=== PATIENT | male | born 1965 | race Caucasian/White ===

== ENCOUNTER 2019-02-28 07:51 | Outpatient (CLI) | payer BC, SELFPAY ==
[2019-02-28 08:50] LABS: Hemoglobin A1C 5.6 % (4.5-6.2)
[2019-02-28 08:58] LABS: Anion Gap 7.6 mmol/L (3-11); BUN 17 mg/dL (7-18); CO2 29.4 mmol/L (21.0-32.0); CREATININE 0.99 mg/dL (0.70-1.30); Calcium 8.9 mg/dL (8.5-10.1); Calculated LDL 115; Chloride 103 mmol/L (98-107); Cholesterol 212 mg/dL (50-200); Glucose 99 mg/dL (70-100); HDL Cholesterol 90 mg/dL (40-60); Potassium 4.5 mmol/L (3.5-5.1); Sodium 140 mmol/L (136-145); Triglyceride 36 mg/dL (30-150)
[2019-03-01 10:33] LABS: HIV-1/2 Ag & Ab Screen Negative (NEGAT)
== END 2019-02-28 08:11 ==
PROVIDERS: PCP Nurse Practitioner Family; Visit Provider Nurse Practitioner Family
DX: E66.01 Morbid (severe) obesity due to excess calories (principal); Z13.1 Encounter for screening for diabetes mellitus; Z13.220 Encounter for screening for lipoid disorders; Z11.4 Encounter for screening for human immunodeficiency virus [HIV]
CPT/HCPCS: 36415; 80048; 80061; 83721; 87389; 83036

== ENCOUNTER 2020-06-25 10:53 | Outpatient (CLI) | payer SELFPAY ==
[2020-06-27 19:31] LABS: Patient Race White; SARS-CoV-2 RNA Undetected (Undetected); SARS-CoV-2 Specimen Source Nasopharynx
== END 2020-06-25 11:13 ==
PROVIDERS: PCP Nurse Practitioner Family; Visit Provider Family Medicine
DX: R05 Cough (principal); Z11.59 Encounter for screening for other viral diseases
CPT/HCPCS: U0003

== ENCOUNTER 2023-12-02 03:31 | Outpatient (CLI) | payer MEDICAID, SELFPAY ==
[2023-12-02 08:07] LABS: Abs Immature Grans 0.12 10^3/uL (0.0-0.06); Absolute Eosinophil Count 0.26 10^3/uL (0.0-0.7); Absolute Lymphocyte Count 3.16 10^3/uL (1.2-3.4); Absolute Monocyte Count 1.02 10^3/uL (0.1-0.8); Basophils % 0.8; Eosinophils % 1.2; HCT 50.3 % (40.0-50.0); HGB 17.1 g/dL (13.5-17.5); Immature Grans % 0.6; Lymphocytes % 14.8; MCH 29.8 pg (27.0-33.0); MCV 88 fL (80-95); MPV 8.3 fL (8.0-11.0); Monocytes % 4.8; Neutrophils % 77.8; Platelet Count 293 10^3/uL (130-400); RBC 5.74 10^6/uL (4.36-5.78); RDW 13.6 % (11.8-14.1); RDW-SD 43.5 fL; WBC 21.33 10^3/uL (4.4-10.8)
[2023-12-02 08:10] LABS: Absolute Basophil Count 0.17 10^3/uL (0.0-0.2); Absolute Neutrophil Count 16.59 10^3/uL (1.2-6.7)
[2023-12-02 08:24] LABS: ALT 32 U/L (16-63); AST 12 U/L (15-37); Albumin 3.8 g/dL (3.4-5.0); Alkaline Phosphatase 97 U/L (46-116); Anion Gap 7.6 mmol/L (3-11); BUN 12 mg/dL (7-18); Bilirubin, Total 1.3 mg/dL (0.2-1.0); CO2 31.4 mmol/L (21.0-32.0); CREATININE 1.1 mg/dL (0.70-1.30); Calcium 9.8 mg/dL (8.5-10.1); Calculated LDL 87 mg/dL (<100); Chloride 101 mmol/L (98-107); Cholesterol 177 mg/dL (<200); Estimated GFR 77.81 (mL/min/1.73m2); Glucose 104 mg/dL (74-106); HDL Cholesterol 84 mg/dL (40-60); Potassium 4.2 mmol/L (3.5-5.1); Sodium 140 mmol/L (136-145); Total Protein 8.3 g/dL (6.4-8.2); Triglyceride 34 mg/dL (<150)
[2023-12-02 08:41] LABS: Hemoglobin A1C 5.8 % (<5.7)
== END 2023-12-02 03:32 | disposition home or self-care (01) ==
LOC: LBO 03:31
PROVIDERS: PCP Nurse Practitioner Family; Referring Provider Nurse Practitioner; Visit Provider Nurse Practitioner
DX: E66.9 Obesity, unspecified (principal); Z13.220 Encounter for screening for lipoid disorders; I10 Essential (primary) hypertension
CPT/HCPCS: 36415; 80053; 80061; 83036; 85025

== ENCOUNTER 2024-03-09 01:04 | Outpatient (CLI) | payer MEDICAID, SELFPAY ==
[2024-03-09 16:19] LABS: Abs Immature Grans 0.04 10^3/uL (0.0-0.06); Absolute Basophil Count 0.12 10^3/uL (0.0-0.2); Absolute Eosinophil Count 0.25 10^3/uL (0.0-0.7); Absolute Monocyte Count 0.74 10^3/uL (0.1-0.8); Absolute Neutrophil Count 6.34 10^3/uL (1.2-6.7); Basophils % 1.1 %; Eosinophils % 2.3 %; HCT 51.5 % (40.0-50.0); HGB 16.6 g/dL (13.5-17.5); Immature Grans % 0.4 %; Lymphocytes % 30.6 %; MCH 29.6 pg (27.0-33.0); MCHC 32.2 % (32.0-36.0); MCV 92 fL (80-95); MPV 8.9 fL (8.0-11.0); Monocytes % 6.9 %; Neutrophils % 58.7 %; Platelet Count 281 10^3/uL (130-400); RDW 13.7 % (11.8-14.1); RDW-SD 46.5 fL; WBC 10.79 10^3/uL (4.4-10.8)
[2024-03-09 22:51] LABS: PSA, Screening 2.8 ng/mL (<=3.5)
[2024-03-10 09:43] LABS: Hepatitis C Ab w Rflx HCV PCR Negative (Negative)
== END 2024-03-09 01:05 | disposition home or self-care (01) ==
LOC: LBO 01:04
PROVIDERS: PCP Nurse Practitioner Family; Referring Provider Nurse Practitioner; Visit Provider Nurse Practitioner
DX: D72.829 Elevated white blood cell count, unspecified (principal); Z11.59 Encounter for screening for other viral diseases; R35.1 Nocturia
CPT/HCPCS: 36415; 84153; 86803; 85025

== ENCOUNTER 2024-05-19 00:45 | Outpatient (CLI) | payer MEDICAID, SELFPAY ==
[2024-05-19 09:08] LABS: Anion Gap 6.6 mmol/L (3-11); BUN 13 mg/dL (7-18); CO2 30.4 mmol/L (21.0-32.0); CREATININE 1.1 mg/dL (0.70-1.30); Calcium 9.5 mg/dL (8.5-10.1); Chloride 103 mmol/L (98-107); Estimated GFR 77.81 (mL/min/1.73m2); Glucose 104 mg/dL (74-106); Potassium 4.2 mmol/L (3.5-5.1); Sodium 140 mmol/L (136-145)
== END 2024-05-19 00:46 | disposition home or self-care (01) ==
LOC: LBO 00:45
PROVIDERS: PCP Nurse Practitioner Family; Visit Provider Nurse Practitioner Family
DX: I10 Essential (primary) hypertension (principal)
CPT/HCPCS: 36415; 80048

== ENCOUNTER 2024-12-12 11:47 | Emergency (ER) | payer OTHER, SELFPAY ==
[2024-12-12 11:57] VITALS: BP 154/97; PULSE 71; RESP 14; TEMP 36.4; O2SAT 96
[2024-12-12 12:33] VITALS: BP 154/74; PULSE 71; RESP 14; TEMP 36.4; O2SAT 99
--- NOTE | 2024-12-12 12:33 | W.ED.GENAD ---
Discharge Plan Disposition Patient Disposition: Eloped Condition: Stable Discharge Details Chief Complaint: EyeProblem Clinical Impression: Visual disturbance, Papilledema Primary Care Provider: Verna Canrey ED Provider: Gisele Mittal Home Meds and New Rx's Prescriptions: No Action One-A-Day Men's Multivitamin 400-20-300 mcg tablet 1 tab PO DAILY ibuprofen 200 mg capsule 200 mg PO QID PRN lisinopril 10 mg tablet 10 mg PO DAILY Qty: 90 3RF fluticasone propionate 50 mcg/actuation spray,suspension 1 spray intranasal BID Qty: 16 1RF Rx Instructions: administer into each nostril HPI General Mode of arrival: ambulatory. Date/Time Provider Initiated Documentation: 12/12/24 12:05. Limitations to Documentation: no limitations. Information obtained by: patient, RN notes reviewed and old records reviewed. HPI Narrative: 59-year-old male presents to the ER with a chief complaint of right blurry vision for approximately 1 week. He denies any headache. He reports that it is slowly getting worse. [facility] He presents with an order for an MRI of brain and orbits with and without and lab work requisition. He does have a history of hypertension high cholesterol, he is a non-smoker does endorse occasional alcohol. ANO x 4. No focal neurodeficits noted. Related Data Home Medications ?Medication ?Instructions ?Recorded ?Confirmed ibuprofen 200 mg capsule 200 mg PO QID PRN 02/23/19 12/12/24 fluticasone propionate 50 1 spray intranasal BID #16 grams 05/05/24 12/12/24 mcg/actuation nasal spray,suspension vpwgfsde-mvxamtgd-oaxqj acid 400 1 tab PO DAILY 06/09/24 12/12/24 mcg-vit K 20 mcg-lycop 300 mcg tablet (One-A-Day Men's Multivitamin) lisinopril 10 mg tablet 10 mg PO DAILY #90 tabs 09/12/24 12/12/24 Previous Rx's ?Medication ?Instructions ?Recorded fluticasone propionate 50 1 spray intranasal BID #16 grams 05/05/24 mcg/actuation nasal spray,suspension lisinopril 10 mg tablet 10 mg PO DAILY #90 tabs 09/12/24 Allergies Allergy/AdvReac Type Severity Reaction Status Date / Time No Known Allergies Allergy Verified 12/12/24 12:01 General Stated Complaint: EyeProblem JOE: 3 Review of Systems All systems reviewed & are unremarkable except as noted in HPI and below Eyes Eyes: Reports blurry vision and Reports other visual disturbances Cardiovascular Cardiovascular: Denies chest pain and Denies dyspnea Respiratory Respiratory: Denies dyspnea Gastrointestinal Gastrointestinal: Denies diarrhea, Denies nausea and Denies vomiting Neurologic Neurologic: Reports as per HPI and Reports other visual disturbances Exam Narrative Exam Narrative: Constitutional: Alert and oriented x3. Appears stated age. Normal body habitus. Head: Normocephalic, no trauma. Eyes: Pupils PERRL, Red reflex noted, EOM's intact. Eyelids symmetrical without lesions, discharge, or swelling. ENT: Bilateral TM's WNL, External ear normal to inspection, no mastoid TTP, swelling, or erythema, Nasal turbinates WNL, no nasal discharge. Normal dentition, Posterior pharynx WNL, no exudate. Chest: RRR, Normal S1, S2, distal pulses intact. Resp: Lungs clear to auscultation bilaterally, no wheezes, rales, or rhonchi. Abdomen: Soft, non-distended, Normoactive bowel sounds all 4 quads. Musculoskeletal: Normal gait, Moves all 4 extremities without difficulty. Skin: No suspicious rashes or lesions. Capillary refill less than 2 sec. Neurologic: Cranial nerves II-XII intact. Alert and oriented x 3. Motor: No deficits noted. Sensory: Intact bilaterally all 4 extremities. Hematologic/Lymphatic: No ecchymosis, no lymphadenopathy. Course Vital Signs Vital signs: Vital Signs Temperature 36.4 C 12/12/24 11:57 Pulse 71 12/12/24 11:57 Respiratory Rate 14 12/12/24 11:57 Blood Pressure 154/97 H 12/12/24 11:57 Pulse Oximetry 96 12/12/24 11:57 Temperature 36.4 C 12/12/24 11:57 Temperature Source Oral 12/12/24 11:57 Pulse 71 12/12/24 11:57 Respiratory Rate 14 12/12/24 11:57 Blood Pressure 154/97 H 12/12/24 11:57 Blood Pressure Position Sitting 12/12/24 11:57 Pulse Oximetry 96 12/12/24 11:57 Oxygen Delivery Method Room Air 12/12/24 11:57 Oxygen Flow Rate 0 12/12/24 11:57 Pain Level 0 12/12/24 11:57 Medical Decision Making 59-year-old male presents to the ER with a chief complaint of right blurry vision for approximately 1 week. He denies any headache. He reports that it is slowly getting worse. He was sent here by [facility]. He presents with an order for an MRI of brain and orbits with and without and lab work requisition. He does have a history of hypertension high cholesterol, he is a non-smoker does endorse occasional alcohol. ANO x 4. No focal neurodeficits noted. Patient reports with an MRI brain with and without and orbits paper order, lab orders and a screening form filled out. The orders were also faxed to the radiology department and lab, [facility] called, spoke with Dr. Pj Barba who is requesting MRI of possible and labs. He reports papilledema and bilateral eyes. Labs ordered, MRI ordered. Patient is asking how long this is going to take. I did discuss with him plan of care and alternative such as a CTA with contrast. Patient has no focal neurodeficits as noted before no signs of CVA. Due to capacity at this time for MRI after weighing the risks and benefits CTA with contrast brain and neck ordered and patient can schedule the MRI as an outpatient. Patient has no focal neurodeficits no sign of CVA or TIA. I did also offer admission for MRI tomorrow which patient declined. MRI canceled and CTA ordered. 1415: Informed by ED staff that patient is not in his room, they are unable to locate him. Presumed elopement. Patient left the department without telling anybody. He did not have any workup completed prior to leaving the department. ED staff attempted to call patient on cell phone no answer. This text was generated using [employer] system, please disregard any oddities of phrase or misspellings. Quality:SDOH Health Related Social Needs: No Data to Display PFSH All Active Problems (Updated 12/12/24 @ 14:26 by Gisele Mittal NP) Papilledema (Acute) Visual disturbance (Acute) Severe sleep apnea (Acute ~05/2024) 06/18/24 Dr Dewey, polysomnogram done 11/09/24 F[facility]u w [facility] Prediabetes (Acute) Post-nasal drip (Acute) Witnessed apneic spells (Acute) Hypertension (Chronic) Bilateral primary osteoarthritis of knee (Acute) Cortisone injection [facility] Diverticulosis (Acute) 04/04/19 colonoscopy [facility] [place] - next due in 10 years BMI 40.0-44.9, adult (Chronic) Medical History (Updated 12/12/24 @ 14:26 by Gisele Mittal NP) Apneic spell witnessed. 04/26/24 saw Amarilys Courtney NP at [facility] Sebaceous hyperplasia Seborrheic keratoses Actinic keratoses Surgical History History of right knee surgery (~2017) Dr. Castaneda; meniscal repair and arthroscopy hand surgery -repair of R hand-LH Family History Mother Arthritis Father , accident at age 77. Heart disease Colon cancer ?pt not sure if colon or not (dx'ed 60s) Brother Diabetes Asthma Brother Diabetes Social History (Updated 01/10/24 @ 16:40 by Iliana King LPN) Smoking/Tobacco Use Status: Never Smoking risk assessment performed?: Yes Alcohol Intake: current Alcohol Intake frequency: holidays/special occasions only Drug use: Never Substance use type: does not use Counseling given: No Caregiver/Support person: No Household members: spouse Housing: house Number of Children: 2 number of grandchildren: 1 Communication Needs: None Education Level: middle school Do you need help understanding health information?: Often current occupation: [employer] Pets and animals: No Do you think of yourself as: straight/heterosexual Current gender identity: male What is your relationship status?: How often do you talk on the phone with friends or family?: three or more times per week How often do you get together with friends or relatives?: three or more times per week Panel score (0-1 are the most socially isolated patients): 2 What type of physical activity do you participate in: none Jill/Scientology: [employer] Special jill needs: No Seatbelt use: sometimes Helmet use: Yes (sometimes) Drive intox or ride w/intox team driver: No Water heater temp set <120 deg: Yes Working smoke detector in home: Yes Fire extinguisher in home: Yes Carbon monox detector in home: Yes Firearms in home: Yes Firearms unloaded and locked: Yes Do you feel safe at home: Yes Do you feel safe in your relationship?: Yes
--- NOTE | 2024-12-12 14:13 | NUR.NOTE ---
This nursing went to get labs for patient and noted that patient was not inside his room. Charge nurse and provider made aware
== END 2024-12-12 14:26 | disposition left against medical advice (07) ==
PROVIDERS: Emergency Provider Registered Nurse Emergency; PCP Nurse Practitioner Family
DX: H53.8 Other visual disturbances (principal); H47.10 Unspecified papilledema; I10 Essential (primary) hypertension; E78.5 Hyperlipidemia, unspecified; Z53.29 Procedure and treatment not carried out because of patient's decision for other reasons
CPT/HCPCS: 80053; 80061; 85652; 87798; 99283; 83036; 85025; 86618

== ENCOUNTER 2024-12-14 01:15 | Outpatient (CLI) | payer OTHER, SELFPAY ==
--- NOTE | 2024-12-14 | DI.MRI_ITS ---
Exam(s) MR BRAIN ORBIT FACE NECK WO/W EXAM: MR BRAIN ORBIT FACE NECK WO/W CLINICAL HISTORY: h47.10,unspecified papillema TECHNIQUE: Multiplanar multisequence MRI of the brain was performed. CONTRAST MATERIAL: IV Contrast: 20 ML of Dotarem contrast administered. COMPARISON: No exams were available for comparison FINDINGS: The examination is limited due to patient motion artifact. BRAIN: VENTRICLES AND EXTRA AXIAL SPACES: Normal in size and morphology for the patient's age. HEMORRHAGE: None. CEREBRAL PARENCHYMA: No focus of restricted diffusion to suggest acute infarct. No space-occupying le harleen identified. MIDLINE SHIFT: None. BRAINSTEM/CEREBELLUM: Normal. CALVARIUM: Normal. ENHANCEMENT: No suspicious enhancement identified. VISUALIZED PARANASAL SINUSES/MASTOIDS: There is opacification of several ethmoid air cells. The judie ining visualized paranasal sinuses are clear. CACHIL DEHE OF CRUZ: Normal flow void. PITUITARY GLAND: Unremarkable. OTHER FINDINGS: ORBITS: ORBITS: The anterior and posterior chambers of the globes are intact. The retrobulbar fat is unremark able. Extraocular muscles are unremarkable. OPTIC NERVES: The intracranial and extracranial portions of the optic nerves are within normal limits . Optic chiasm is within normal limits. No MRI evidence of optic neuritis identified. SOFT TISSUES: The superior opthalmic veins are unremarkable. Remaining soft tissues are unremarkable. OTHER FINDINGS: None. IMPRESSION: 1. Unremarkable MRI of the brain and orbits. 2. Opacification of the ethmoid air cells. The remaining visualized paranasal sinuses are clear. 3. No evidence of an acute infarct, intracranial mass or enhancing lesion. DATA REPOSITORY:
--- NOTE | 2024-12-14 | DI.RAD_ITS ---
Exam(s) XR SKULL 2V EXAM: XR SKULL 2V CLINICAL HISTORY: ? METAL IN EAR PRIOR TO MRI. TECHNIQUE: 2D digital imaging was performed. COMPARISON: No exams were available for comparison FINDINGS: No fracture or other significant abnormalities are seen. The calvaria and skull base are normal. No evidence of metallic foreign body. IMPRESSION: Unremarkable radiographs of the skull. No evidence of metallic foreign body. DATA REPOSITORY: RADIATION DOSE DELIVERED:
[2024-12-14 15:12] LABS: Abs Immature Grans 0.03 10^3/uL (0.0-0.06); Absolute Basophil Count 0.08 10^3/uL (0.0-0.2); Absolute Eosinophil Count 0.27 10^3/uL (0.0-0.7); Absolute Lymphocyte Count 3.15 10^3/uL (1.2-3.4); Absolute Monocyte Count 0.56 10^3/uL (0.1-0.8); Absolute Neutrophil Count 5.24 10^3/uL (1.2-6.7); Basophils % 0.9 %; Eosinophils % 2.9 %; HCT 44.6 % (40.0-50.0); HGB 15.3 g/dL (13.5-17.5); Immature Grans % 0.3 %; Lymphocytes % 33.8 %; MCH 30.4 pg (27.0-33.0); MCHC 34.3 % (32.0-36.0); MCV 89 fL (80-95); MPV 8.1 fL (8.0-11.0); Neutrophils % 56.1 %; Platelet Count 293 10^3/uL (130-400); RBC 5.03 10^6/uL (4.36-5.78); RDW-SD 42.2 fL; WBC 9.33 10^3/uL (4.4-10.8)
[2024-12-14 15:18] LABS: ESR 9 mm/hr (0-20)
[2024-12-14 15:20] LABS: Hemoglobin A1C 5.8 % (<5.7)
[2024-12-14 15:32] LABS: C-Reactive Protein 0.79 mg/dL (<or=0.5); Glucose 104 mg/dL (74-106)
[2024-12-14] MEDS: Normal Saline Flush 10 ML SYR IVP (15:37)
[2024-12-14] MEDS: Gadoterate meglumine 20 ML SYRINGE IVP (15:38)
[2024-12-18 12:24] LABS: Syphilis Serology (RPR) Negative (Negative)
[2024-12-18 12:30] LABS: ANA Interpretation Negative (Negative)
== END 2024-12-14 01:35 ==
LOC: DI 01:15
PROVIDERS: PCP Nurse Practitioner Family; Visit Provider Optometrist
DX: H47.10 Unspecified papilledema (principal)
CPT/HCPCS: 36415; 70553; 82947; 85652; 70250; 70543; 83036; 85025; 86038; 86140; 86592